=== PATIENT | female | born 1955 | race Caucasian/White ===

== ENCOUNTER 2018-06-22 09:59 | Observation (INO) ==
[2018-06-22 11:27] LABS: Baso % (Auto) 0.6 % (0.0-2.0); Eos # (Auto) 0.1 th/mm3 (0.0-0.4); Eos % (Auto) 1.4 % (0.0-4.0); Hematocrit 40.5 % (35.0-46.0); Hemoglobin 13.9 gm/dL (11.6-15.3); Lymph # (Auto) 1.8 th/mm3 (1.0-4.8); Mean Corpuscular HGB Conc 34.4 % (32.0-36.0); Mean Corpuscular Hemoglobin 33.8 pg (27.0-34.0); Mean Platelet Volume 8.3 fL (7.0-11.0); Mono # (Auto) 0.4 th/mm3 (0.0-0.9); Mono % (Auto) 5.7 % (0.0-8.0); Neut # (Auto) 5.1 th/mm3 (1.8-7.7); Neut % (Auto) 68.3 % (16.0-70.0); Platelet Count 226 th/mm3 (150-450); Red Blood Count 4.13 mil/mm3 (4.00-5.30); Red Cell Distribution Width 13.5 % (11.6-17.2); White Blood Count 7.4 th/mm3 (4.0-11.0)
[2018-06-22 11:45] LABS: Alanine Aminotransferase 19 U/L (10-53); Albumin 3.6 g/dL (3.4-5.0); Anion Gap 5 meq/L (5-15); Aspartate Aminotransferase 16 U/L (15-37); Blood Urea Nitrogen 12 mg/dL (7-18); Calcium 8.5 mg/dL (8.5-10.1); Carbon Dioxide 26.6 meq/L (21.0-32.0); Chloride 105 meq/L (98-107); Glomerular Filtration Rate 61 mL/min (>89); Glucose,Random 76 mg/dL (74-106); Magnesium 1.9 mg/dL (1.5-2.5); Potassium 4.3 meq/L (3.5-5.1); Sodium 137 meq/L (136-145)
[2018-06-22 11:49] LABS: Alkaline Phosphatase 64 U/L (45-117); Total Protein 7.2 g/dL (6.4-8.2)
[2018-06-22 11:50] LABS: Activated Partial Thrombo Time 25.7 sec (23.4-31.7)
[2018-06-22 11:52] LABS: Creatine Kinase 57 U/L (26-192)
--- NOTE | 2018-06-22 13:02 | MR ---
EXAM DATE: 06/22/2018 12:40 PM EST AGE/SEX: 63 years / Female INDICATIONS: Cephalgia. Confusion. CLINICAL DATA: This is the patient's initial encounter. Patient reports that signs and symptoms have been present for 2 days and indicates a pain score of 3/10. MEDICAL/SURGICAL HISTORY: Hypertension. Tonsillectomy. LEEP procedure COMPARISON: [facility], CT HEAD W/O CONTRAST, 06/20/2018. . TECHNIQUE: Multiplanar, multisequence examination of the brain was performed without contrast. FINDINGS: Cerebrum: The ventricles are normal for age. No evidence of midline shift, mass lesion, hemorrhage or acute infarction. No extraaxial fluid collections are seen. The pituitary gland and suprasellar cistern are normal in configuration. White Matter: A few small nonspecific signal abnormalities are seen in the white matter. Posterior Fossa: The cerebellum and brainstem are intact. The 4th ventricle is midline. The cerebel lopontine angle is unremarkable. The cerebellar tonsils are normal in position. Diffusion Imaging: No focal areas of restricted diffusion are seen. No evidence of acute infarction . Extracranial: The visualized portions of the orbits and paranasal sinuses are unremarkable. CONCLUSION: 1. Minimal cerebral white matter disease not unexpected for age. 2. No evidence of acute infarct, hemorrhage, mass or edema. 3. Otherwise normal appearance of the brain for age. Electronically signed by: Bradford Clark MD 06/22/2018 1:01 PM EST
--- NOTE | 2018-06-22 14:24 | ED ---
HPI General Chief complaint: Altered Mental Status Stated complaint: AMS Time Seen by Provider: 06/22/18 10:49 Source: patient Mode of arrival: ambulatory Limitations: no limitations History of Present Illness HPI narrative: Patient is a 63 year old female who comes in complaining of confusion and altered mental status. She says she has been increasingly confused since Monday. Daughter sees her daily and says this is a new change.Daughter says she has been having trouble with finding words and does not know where she is. She says she has had 3 words yesterday she describes it as a "foggy sensation." She was seen Monday and diagnosed with a UTI. She took the Bactrim and is no longer having any symptoms. Daughter is concerned that she continues to be confused. Severity is mild to moderate. Related Data Home Medications Medication Instructions Recorded Confirmed amitriptyline mg PO HS 06/20/18 cyclobenzaprine 10 mg PO BID 06/20/18 06/22/18 gabapentin 100 mg PO BID 06/20/18 06/22/18 lisinopril 20 mg PO DAILY 06/20/18 06/22/18 metoprolol tartrate mg PO BID 06/20/18 Previous Rx's Medication Instructions Recorded sulfamethoxazole-trimethoprim 1 tab PO Q12H #6 tab 06/20/18 [Bactrim DS] Allergies Allergy/AdvReac Type Severity Reaction Status Date / Time diatrizoate meglumine Allergy Severe "HIVES" Verified 06/22/18 10:45 gadobenic acid Allergy Severe "HIVES" Verified 06/22/18 10:45 gadodiamide Allergy Severe "HIVES" Verified 06/22/18 10:45 gadoteridol Allergy Severe "HIVES" Verified 06/22/18 10:45 iodine Allergy Severe Hives Verified 06/22/18 10:45 iodixanol Allergy Severe "HIVES" Verified 06/22/18 10:45 iohexol Allergy Severe "HIVES" Verified 06/22/18 10:45 potassium iodide Allergy Severe Hives Verified 06/22/18 10:45 povidone-iodine Allergy Severe Hives Verified 06/22/18 10:45 sodium iodide Allergy Severe Hives Verified 06/22/18 10:45 sodium iodide Allergy Severe Hives Verified 06/22/18 10:45 ibuprofen [From Motrin] AdvReac Intermediate Heartburn Verified 06/22/18 10:45 tramadol AdvReac Intermediate nausea abd Verified 06/22/18 10:45 pain Review of Systems ROS: all other systems reviewed are negative Constitutional Denies chills and Denies fever(s) ENT Denies dizziness Cardiovascular Denies chest pain and Denies dyspnea Respiratory Denies dyspnea Gastrointestinal Denies nausea and Denies vomiting Musculoskeletal Denies myalgias and Denies arthralgias Integumentary/Breasts Denies sores and Denies wounds Neurologic Denies focal weakness and Denies numbness [facility] Medical History Medical History Hypertension (Acute) Rheumatoid arthritis (Acute) Social History Social History Substance History: No History of Abuse Second Hand Smoke Exposure: No Smoking Status: Current every day smoker Tobacco Type: Cigarettes How Often Do You Have a Drink Containing Alcohol: 2 to 4 times a month Recent Travel in [facility] within the Last 8 Weeks: No Recent Out of Country Travel within the Last 8 Weeks: No Immunization History Tetanus Immunization: <5 Years Exam Narrative Exam Narrative: GENERAL: Awake and alert, in no acute distress. SKIN: Focused skin assessment warm/dry. HEAD: Atraumatic. Normocephalic. EYES: Pupils equal and round. No scleral icterus. No injection or drainage. ENT: Mucous membranes pink and moist. NECK: Trachea midline. No JVD. CARDIOVASCULAR: Regular rate and rhythm. No murmur appreciated. RESPIRATORY: No accessory muscle use. Clear to auscultation. Breath sounds equal bilaterally. GASTROINTESTINAL: Abdomen soft, non-tender, nondistended. MUSCULOSKELETAL: No obvious deformities. No clubbing. No cyanosis. No edema. NEUROLOGICAL: Awake and alert. No obvious cranial nerve deficits. Motor grossly within normal limits. Normal speech. PSYCHIATRIC: Appropriate mood and affect; insight and judgment normal. Course Initial Documented Vital Signs Temperature 98.2 F 06/22/18 10:41 Pulse Rate 62 06/22/18 10:41 Respiratory Rate 14 06/22/18 10:41 Blood Pressure 114/63 06/22/18 10:41 Pulse Oximetry 98 06/22/18 10:41 Last Documented Vital Signs Temperature 98.2 F 06/22/18 10:41 Pulse Rate 62 06/22/18 10:41 Respiratory Rate 14 06/22/18 10:41 Blood Pressure 114/63 06/22/18 10:41 Pulse Oximetry 94 L 06/22/18 11:18 Medical Decision Making MDM Narrative Medical decision making narrative: Patient is a 63-year-old female who comes in due to confusion. Exam shows no neurologic abnormalities. IV established, labs sent. Labs show no acute abnormalities. MRI of the brain performed shows no acute abnormalities. I spoke with Dr. Agarwal who suggests admission with neurology consult. He suggests obtaining a sed rate, MR of the [place] of [place] as well as the carotids. He suggests EEG. Patient admitted for further management. Medical Screen Exam Complete: Yes Emergency Medical Condition: Yes Differential Diagnosis Differential Diagnosis: TIA versus electrolyte abnormality versus infection Medical Records Medical records reviewed: Yes I reviewed the patient's medical records. Lab Data Lab results reviewed: Yes I reviewed the patient's lab results. Result diagrams: 06/22/18 11:10 06/22/18 11:10 Lab Results 06/22/18 06/22/18 06/22/18 Range/Units 11:04 11:10 11:10 WBC 7.4 (4.0-11.0) th/mm3 RBC 4.13 (4.00-5.30) mil/mm3 Hgb 13.9 (11.6-15.3) gm/dL Hct 40.5 (35.0-46.0) % MCV 98.0 (80.0-100.0) fL MCH 33.8 (27.0-34.0) pg MCHC 34.4 (32.0-36.0) % RDW 13.5 (11.6-17.2) % Plt Count 226 (150-450) th/mm3 MPV 8.3 (7.0-11.0) fL Neut % (Auto) 68.3 (16.0-70.0) % Lymph % (Auto) 24.0 (9.0-44.0) % Kinney % (Auto) 5.7 (0.0-8.0) % Eos % (Auto) 1.4 (0.0-4.0) % Baso % (Auto) 0.6 (0.0-2.0) % Neut # (Auto) 5.1 (1.8-7.7) th/mm3 Lymph # (Auto) 1.8 (1.0-4.8) th/mm3 Kinney # (Auto) 0.4 (0.0-0.9) th/mm3 Eos # (Auto) 0.1 (0.0-0.4) th/mm3 Baso # (Auto) 0.0 (0.0-0.2) th/mm3 WBC Differential . Differential Comment Auto diff final PT 10.0 (9.8-11.6) sec INR 1.0 Ratio APTT 25.7 (23.4-31.7) sec Sodium (136-145) meq/L Potassium (3.5-5.1) meq/L Chloride (98-107) meq/L Carbon Dioxide (21.0-32.0) meq/L Anion Gap (5-15) meq/L BUN (7-18) mg/dL Creatinine (0.50-1.00) mg/dL Estimated GFR (>89) mL/min POC Glucose 84 (68-110) mg/dl Random Glucose (74-106) mg/dL Calcium (8.5-10.1) mg/dL Magnesium (1.5-2.5) mg/dL Total Bilirubin (0.2-1.0) mg/dL AST (15-37) U/L ALT (10-53) U/L Alkaline Phosphatase (45-117) U/L Total Creatine Kinase (26-192) U/L Troponin I (0.02-0.05) ng/mL Total Protein (6.4-8.2) g/dL Albumin (3.4-5.0) g/dL 06/22/18 Range/Units 11:10 WBC (4.0-11.0) th/mm3 RBC (4.00-5.30) mil/mm3 Hgb (11.6-15.3) gm/dL Hct (35.0-46.0) % MCV (80.0-100.0) fL MCH (27.0-34.0) pg MCHC (32.0-36.0) % RDW (11.6-17.2) % Plt Count (150-450) th/mm3 MPV (7.0-11.0) fL Neut % (Auto) (16.0-70.0) % Lymph % (Auto) (9.0-44.0) % [place] % (Auto) (0.0-8.0) % Eos % (Auto) (0.0-4.0) % Baso % (Auto) (0.0-2.0) % Neut # (Auto) (1.8-7.7) th/mm3 Lymph # (Auto) (1.0-4.8) th/mm3 [place] # (Auto) (0.0-0.9) th/mm3 Eos # (Auto) (0.0-0.4) th/mm3 Baso # (Auto) (0.0-0.2) th/mm3 WBC Differential Differential Comment PT (9.8-11.6) sec INR Ratio APTT (23.4-31.7) sec Sodium 137 (136-145) meq/L Potassium 4.3 (3.5-5.1) meq/L Chloride 105 (98-107) meq/L Carbon Dioxide 26.6 (21.0-32.0) meq/L Anion Gap 5 (5-15) meq/L BUN 12 (7-18) mg/dL Creatinine 0.92 (0.50-1.00) mg/dL Estimated GFR 61 L (>89) mL/min POC Glucose (68-110) mg/dl Random Glucose 76 (74-106) mg/dL Calcium 8.5 (8.5-10.1) mg/dL Magnesium 1.9 (1.5-2.5) mg/dL Total Bilirubin 0.1 L (0.2-1.0) mg/dL AST 16 (15-37) U/L ALT 19 (10-53) U/L Alkaline Phosphatase 64 (45-117) U/L Total Creatine Kinase 57 (26-192) U/L Troponin I Less than 0.02 L (0.02-0.05) ng/mL Total Protein 7.2 (6.4-8.2) g/dL Albumin 3.6 (3.4-5.0) g/dL Imaging Data Radiologist's impression: Head MRI 06/22/18 11:06 CONCLUSION: 1. Minimal cerebral white matter disease not unexpected for age. 2. No evidence of acute infarct, hemorrhage, mass or edema. 3. Otherwise normal appearance of the brain for age. Discharge Plan Discharge Disposition Patient Disposition: 30 Still Patient Discharge Condition Condition: Stable Discharge Details Diagnosis: Altered mental status Physicians Team ED Provider: Doris Neville Primary Care Provider: Lindsey Alonso Attending Provider: Feliciano Fink Other Providers: Gm Agarwal Discharge Interventions Interventions: Vital Signs Last Done: 06/22/18 14:44 Status ED Status: Admitted Observation Patient
[2018-06-22] MEDS ORDERED: Acetaminophen 325 MG Tablet PO PRN (14:42)
[2018-06-22] MEDS ORDERED: Sod Chloride 0.9% Inj 1,000 ML IV.CONT SCH (14:45)
[2018-06-22 16:29] LABS: Vitamin B12 813 pg/mL (193-986)
[2018-06-22] MEDS ORDERED: LORazepam 1 MG Tablet PO PRN (16:32)
--- NOTE | 2018-06-22 17:10 | MR ---
EXAM DATE: 06/22/2018 5:01 PM EST AGE/SEX: 63 years / Female INDICATIONS: Confusion. CLINICAL DATA: This is the patient's initial encounter. Patient reports that signs and symptoms have been present for 1 day and indicates a pain score of 0/10. MEDICAL/SURGICAL HISTORY: Hypertension. Tonsillectomy. COMPARISON: [facility] [place], MR HEAD W/O CONTRAST, 06/22/2018. . TECHNIQUE: 3D zomy-cl-futkez MRA was performed. Source images, multiplanar STS MIP, and 3D volum e MIP reconstructions were reviewed. FINDINGS: There is excellent visualization of the major intracranial arteries out to the second-order branch ve ssels. There is no evidence for aneurysm, vessel truncation or stenosis, and no evidence for vascula r malformation. CONCLUSION: 1. Negative MRA Cow ([place]) non contrast. 2. No evidence of significant steno-occlusive disease, aneurysm or vasculopathy. Electronically signed by: Bradford Clark MD 06/22/2018 5:09 PM EST
--- NOTE | 2018-06-22 17:50 | P.HPIM ---
History of Present Illness Primary Care Physician: Lindsey Alonso RN History of Present Illness: Pt is 63 yo with htn who presents with an alteration of her baseline cognitive function. History obtained from patient and her daughter who works here at [employer] in psychiatric dept. Pt turned 63 this past Monday and spent the day with several of her girlfriends. Dinner then a bonfire. She spent the night with them and the next day drove herself home. Friends have told Charissa her daughter that she was in her normal state of health during Monday and nothing unusual occurred. On Monday pt was having dinner with daughter and it was noted she was not behaving normally. On Monday/ Monday spent alot of time in bed secluded and daughter says she would only give one word answers and appeared to be having word finding problems. And her mother is normally a "talker". at thanksgiving dinner she sat alone and was "humming alot". complained of some occipital pains into her neck. She had also been seen in ED on Monday and given a script for bactrim to cover a possible uti. that u/a was very unremarkable and pt denied ever having any uti sx's. CT head negative at that time. She was brought to ED today on Monday and admitted for further evaluation. Pt daughter admits that this behavior waxed and waned this week and wasn't continuous. Even in ED today had "20minutes of nml behavior". Daughter says 3months ago this happened for 24hrs and she then returned to normal self. PMH: anxiety htn OA with some chronic neck/shouder pain rotator cuff left shoulder hx etoh abuse "sz during pregnany per daughter 35yrs ago" pad. using plavix. Meds. metoprolol 100 mg ?bid lisinipril 20mg daily amitryptilline ?dose plavix 75mg daily gabapentin 100mg bid flexeril 10mg bid bactrim SH remove heavy etoh use with liquor age [age]. then 4-6 beers/day no hx etoh w/d FH: noncontributory Diagnosis (1) Altered mental status: Medications and Allergies Allergies Allergy/AdvReac Type Severity Reaction Status Date / Time diatrizoate meglumine Allergy Severe "HIVES" Verified 06/22/18 10:45 gadobenic acid Allergy Severe "HIVES" Verified 06/22/18 10:45 gadodiamide Allergy Severe "HIVES" Verified 06/22/18 10:45 gadoteridol Allergy Severe "HIVES" Verified 06/22/18 10:45 iodine Allergy Severe Hives Verified 06/22/18 10:45 iodixanol Allergy Severe "HIVES" Verified 06/22/18 10:45 iohexol Allergy Severe "HIVES" Verified 06/22/18 10:45 potassium iodide Allergy Severe Hives Verified 06/22/18 10:45 povidone-iodine Allergy Severe Hives Verified 06/22/18 10:45 sodium iodide Allergy Severe Hives Verified 06/22/18 10:45 sodium iodide Allergy Severe Hives Verified 06/22/18 10:45 ibuprofen [From Motrin] AdvReac Intermediate Heartburn Verified 06/22/18 10:45 tramadol AdvReac Intermediate nausea abd Verified 06/22/18 10:45 pain Home Medications Medication Instructions Recorded Confirmed Type amitriptyline mg PO HS 06/20/18 History cyclobenzaprine 10 mg PO BID 06/20/18 06/22/18 History gabapentin 100 mg PO BID 06/20/18 06/22/18 History lisinopril 20 mg PO DAILY 06/20/18 06/22/18 History metoprolol tartrate mg PO BID 06/20/18 History Active Medications: Active Medications Acetaminophen (Tylenol) 650 mg PO Q4H PRN PRN Reason: Temp > 100.4 Al Hydroxide/Mg Hydroxide (Milk Of Magnmoo Liq) 30 ml PO Q12H PRN PRN Reason: Mild Constipation Amitriptyline HCl (Elavil) 10 mg PO HS ADRYAN Flumazenil (Romazecon Inj) 0.2 mg IV.PUSH Q1M PRN PRN Reason: OVERSEDATION Sodium Chloride (Ns Inj) 1,000 mls @ 75 mls/hr IV.CONT .[id number] [facility] Last Infusion: 06/22/18 17:16 Dose: 75 mls/hr Lisinopril (Prinivil) 20 mg PO DAILY ADRYAN Lorazepam (Ativan Inj) 1 mg IV.PUSH Q4H PRN PRN Reason: for CIWA 8-10 Lorazepam (Ativan Inj) 2 mg IV.PUSH Q15M PRN PRN Reason: for CIWA > 20 Lorazepam (Ativan Inj) 2 mg IV.PUSH Q1H PRN PRN Reason: for CIWA 15-20 Lorazepam (Ativan Inj) 2 mg IV.PUSH Q2H PRN PRN Reason: for CIWA 11-14 Lorazepam (Ativan) 1 mg PO Q4H PRN PRN Reason: for CIWA 8-10 Lorazepam (Ativan) 2 mg PO Q2H PRN PRN Reason: for CIWA 11-14 Metoprolol Tartrate (Lopressor) 50 mg PO BID ADRYAN Ondansetron HCl (Zofran Inj) 4 mg IV.PUSH Q6H PRN PRN Reason: NAUSEA OR VOMITING Senna/Docusate Sodium (Tracey-Colace) 1 tab PO BID ADRYAN Sodium Chloride (Ns Flush) 2 ml IV.FLUSH PRN PRN PRN Reason: FLUSH AFTER USING IV ACCESS Physical Exam Vital signs: Last Vital Signs Temp 98.2 F 06/22/18 10:41 Pulse 60 06/22/18 14:44 Resp 14 06/22/18 10:41 BP 161/78 H 06/22/18 14:44 Pulse Ox 98 06/22/18 14:44 Narrative: disoriented cooperative. understood she was not remembering things unable to tell me where she was born or currently lived new her daughter's name no nuchal rigidity. moves all 4 extremities w/out difficulty no jvd or carotid bruit heart reg lung cta abd s/nt ext no edema no rash or joint swelling. Results Labs CBC & Chem 7: 06/22/18 11:10 06/22/18 11:10 Caprini VTE Risk Assessment Caprini Risk Assessment Model: Point Value = 1 Point Value = 2 Point Value = 3 Point Value = 5 Age 41-60 Minor surgery BMI > 25 kg/m2 Swollen legs Varicose veins or History of unexplained or recurrent spontaneous Oral contraceptives or hormone replacement Sepsis (< 1 month) Serious lung disease, including pneumonia (< 1 month) Abnormal pulmonary function Acute myocardial infarction Congestive heart failure (< 1 month) History of inflammatory bowel disease Medical patient at bed rest Age 61-74 Arthroscopic surgery Major open surgery (> 45 min) Laparoscopic surgery (> 45 min) Malignancy Confined to bed (> 72 hours) Immobilizing plaster cast Central venous access Age >= 75 History of VTE Family history of VTE Factor V Leiden Prothrombin [id number] Lupus anticoagulant Anticardiolipin antibodies Elevated serum homocysteine Heparin-induced thrombocytopenia Other congenital or acquired thrombophilia Stroke (< 1 month) Elective arthroplasty Hip, pelvis, or leg fracture Acute spinal cord injury (< 1 month) Prophylaxis Regimen: Total Risk Factor Score Risk Level Prophylaxis Regimen 0-1 Low Early ambulation 2 Moderate Order ONE of the following: *Sequential Compression Device (SCD) *Heparin 5000 units SQ BID 3-4 Higher Order ONE of the following medications: *Heparin 5000 units SQ TID *Enoxaparin/Lovenox 40 mg SQ daily (WT < 150 kg, CrCl > 30 mL/min) *Enoxaparin/Lovenox 30 mg SQ daily (WT < 150 kg, CrCl > 10-29 mL/min) *Enoxaparin/Lovenox 30 mg SQ BID (WT < 150 kg, CrCl > 30 mL/min) AND/OR *Sequential Compression Device (SCD) 5 or more Highest Order ONE of the following medications: *Heparin 5000 units SQ TID (Preferred with Epidurals) *Enoxaparin/Lovenox 40 mg SQ daily (WT < 150 kg, CrCl > 30 mL/min) *Enoxaparin/Lovenox 30 mg SQ daily (WT < 150 kg, CrCl > 10-29 mL/min) *Enoxaparin/Lovenox 30 mg SQ BID (WT < 150 kg, CrCl > 30 mL/min) AND *Sequential Compression Device (SCD) Assessment and Plan Assessment (1) Altered mental status: Code(s): R41.82 - Altered mental status, unspecified Status: Acute Plan 1. Mental status change. etiology unclear. so far no radiographic evidence for acute cva will evaluate for metabolic abnormalities will exclude seizure consider psychiatric d/o. medication side effect seems less likely consider relation to her etoh and etoh abuse 2. hx etoh abuse 3. htn neurology consulted mra brain and neck pending eeg ordered and pending esr, tsh, b12, ammonia, bmp, lft ciwa protocol hold gabapentin and flexeril pt is using plavix for pad per daughter telemetry. _ (1) Altered mental status Qualifiers: Altered mental status type: unspecified Coma depth: Coma timing: Qualified Code(s): R41.82 - Altered mental status, unspecified
--- NOTE | 2018-06-22 17:55 | MR ---
EXAM DATE: 06/22/2018 5:38 PM EST AGE/SEX: 63 years / Female INDICATIONS: . Confusion. CLINICAL DATA: This is the patient's initial encounter. Patient reports that signs and symptoms have been present for 1 day and indicates a pain score of 0/10. MEDICAL/SURGICAL HISTORY: Hypertension. Tonsillectomy. COMPARISON: [facility] – [place], MR HEAD W/O CONTRAST, 06/22/2018. . TECHNIQUE: 3D time-of- flight MRA of the extracranial circulation was performed using a neurovascul ar coil. Post processing was performed including rotating sub-volume maximum intensity projections o f each carotid artery, rotating full-volume maximum intensity projections of both carotid arteries, s agittal and coronal sliding thin-slab reformations of each carotid artery, and left oblique sliding t hin-slab reformation through the aortic arch to include the origin of the arch branch vessels. FINDINGS: Aortic Arch : Flow is identified in the innominate and left common carotid artery. There is no flow noted in the left subclavian artery. Right Carotid : The common carotid artery is intact. The carotid bulb has a normal configuration wi thout ulceration or narrowing. The internal carotid artery lumen is smooth without stenosis. The ex ternal carotid artery is intact. Left Carotid : The common carotid artery is intact. The carotid bulb has a normal configuration wit hout ulceration or narrowing. The internal carotid artery lumen is smooth without stenosis. The ext ernal carotid artery is intact. Vertebrals : A large right vertebral artery is identified. There is no flow identified in the left v ertebral artery. CONCLUSION: 1. No definable flow in the left subclavian artery and left vertebral artery characteristic of occlu sions. 2. No evidence of significant steno-occlusive disease involving the carotid arteries 3. Large dominant right vertebral artery. Percent stenosis is calculated using the diameter of the stenotic region over the diameter of the nor mal distal internal carotid artery Electronically signed by: Bradford Clark MD 06/22/2018 5:53 PM EST
[2018-06-22 20:08] LABS: ABG Base Excess 2.8 mmol/L (-2-2); ABG PCO2 37 mmHg (38-42); ABG PO2 74 mmHg (61-120)
--- NOTE | 2018-06-22 20:33 | MB ---
cc: Gm Agarwal MD DATE: 06/22/2018 HISTORY OF PRESENT ILLNESS: A 63-year-old right-handed woman with hypertension, may be a seizure, her daughter is unsure. She says no. She was with her daughter many years ago. No seizures ever since. She has been on Elavil for anxiety and sleeping at night for about a year. She takes Plavix for peripheral vascular disease. She has some anxiety, apparently. She has had a short-term memory problem a few months back just for [address] over her daughter's house, does not remember being there. Then, she seemed to recover fully. She was not intoxicated at the time. Then, for the last 3 days, her memory has been poor. SOCIAL HISTORY: She is a smoker. She has 6 beers a day. Lives with her son. No narcotics or drugs. FAMILY HISTORY: Negative for cancer, seizure, stroke. REVIEW OF SYSTEMS: No history of diabetes, hypercholesterolemia, TN, stent, angioplasty, AFib, Coumadin, renal, hepatic, or pulmonary disease, thyroid disease, lupus, ulcer, cancer, or stroke. She has had a little bit of a headache posteriorly and some neck discomfort. No fall. She did not hit her head. MEDICATIONS AT HOME: 1. Lisinopril. 2. Gabapentin 100 b.i.d. 3. Cyclobenzaprine 10 b.i.d. 4. Bactrim. 5. Metoprolol. 6. Elavil, not sure how many mg at night. CURRENT MEDICATIONS HERE: 1. She is on Elavil and I have stopped that. 2. Ativan p.r.n. PHYSICAL EXAMINATION: VITAL SIGNS: Afebrile, 161/78 to 114/63, 60, O2 saturation 94%. NECK: There were no carotid bruits. HEART: Regular rhythm. I did not detect a murmur. NEUROLOGIC: Pupils are equal. Visual mcfadden are full. Extraocular movements intact without nystagmus. Face is symmetric with normal sensation. Tongue was midline. No drift. Normal strength in upper and lower extremities bilaterally. DTR 1+ and symmetric throughout. Toes are downgoing bilaterally. Pinprick is intact throughout. There is no ankle clonus. She is not ataxic on [id number]. She cannot tell me the year or the month. She does note Thanksgiving just happened. She can get 13-5 calculation normal. She can show me her left thumb. She follows commands well. Neck is supple. LABORATORY DATA: CBC is normal. Sedimentation rate is 4. Basic metabolic profile is normal. LFTs are normal. Ammonia level normal. Troponin, CPK, B12, folate, TSH, coags all normal. MRI of the brain normal, minimal white matter changes bilaterally. She is right vertebral dominant. The left is occluded. Carotids looked fine. [place] was read as normal. IMPRESSION: Certainly some type of confusion. Whether she could be having small seizures could be considered. A mild case of herpes encephalitis could be considered. We are going to put her on some acyclovir. Unfortunately, she cannot have a LP as just coming off the Plavix. I would stop the Elavil. We will check an EEG, give her IV hydration. Check an ABG. We can check a paraneoplastic screen. We will check a chest x-ray on her to make sure there is no mass. Subclinical seizures could be considered. Check thiamine level. MD LARRY Bundy/izabela , 07:48 PM , 07:55 PM
[2018-06-22] MEDS ORDERED: Amitriptyline 10 MG Tablet PO SCH (21:00)
--- NOTE | 2018-06-22 21:09 | XR ---
EXAM DATE: 06/22/2018 9:02 PM EST AGE/SEX: 63 years / Female INDICATIONS: . Shortness of breath CLINICAL DATA: This is the patient's initial encounter. Patient reports that signs and symptoms have been present for 1 day and indicates a pain score of 0/10. MEDICAL/SURGICAL HISTORY: None. None. COMPARISON: HPO, CHEST 1V SINGLE AP, 06/20/2018. . FINDINGS: Mild diffuse interstitial opacities without new focal pleural or parenchymal opacities.. The cardiom ediastinal contours are unremarkable. Osseous structures are intact. CONCLUSION: 1. No acute abnormality or significant interval change. Electronically signed by: Cody Cardoso MD 06/22/2018 9:07 PM EST
[2018-06-22] MEDS: Sod Chloride 0.9% Inj 1,000 ML IV.CONT SCH (21:10)
[2018-06-22] MEDS: ACYCLOVIR IV.SIG SCH ×2 (21:11→21:30)
[2018-06-22] MEDS: SODIUM CHLOR 0.9% IV.SIG SCH ×2 (21:11→21:30)
[2018-06-22] MEDS: Metoprolol Tartrate 50 MG Tablet PO SCH (21:12)
[2018-06-22] MEDS: Senna/Docusate Sodium 8.6/50 MG Tablet PO SCH (21:12)
[2018-06-22] MEDS ORDERED: Haloperidol Inj 5 MG/ML Ampul IV.PUSH PRN (22:00)
[2018-06-23] MEDS: Senna/Docusate Sodium 8.6/50 MG Tablet PO SCH ×2 (01:20→08:13)
[2018-06-23] MEDS: ACYCLOVIR IV.SIG SCH (05:06)
[2018-06-23] MEDS: SODIUM CHLOR 0.9% IV.SIG SCH (05:06)
[2018-06-23 06:31] LABS: Baso % (Auto) 0.8 % (0.0-2.0); Eos # (Auto) 0.2 th/mm3 (0.0-0.4); Eos % (Auto) 3.1 % (0.0-4.0); Hematocrit 39.4 % (35.0-46.0); Hemoglobin 13.6 gm/dL (11.6-15.3); Lymph # (Auto) 2.4 th/mm3 (1.0-4.8); Lymph % (Auto) 47.4 % (9.0-44.0); Mean Corpuscular HGB Conc 34.4 % (32.0-36.0); Mean Corpuscular Hemoglobin 33.1 pg (27.0-34.0); Mean Corpuscular Volume 96.4 fL (80.0-100.0); Mean Platelet Volume 8.5 fL (7.0-11.0); Mono # (Auto) 0.3 th/mm3 (0.0-0.9); Mono % (Auto) 6.1 % (0.0-8.0); Neut # (Auto) 2.2 th/mm3 (1.8-7.7); Neut % (Auto) 42.6 % (16.0-70.0); Platelet Count 254 th/mm3 (150-450); Red Blood Count 4.09 mil/mm3 (4.00-5.30); Red Cell Distribution Width 13.8 % (11.6-17.2); White Blood Count 5.1 th/mm3 (4.0-11.0)
[2018-06-23 06:39] LABS: Alanine Aminotransferase 19 U/L (10-53); Albumin 3.7 g/dL (3.4-5.0); Anion Gap 6 meq/L (5-15); Aspartate Aminotransferase 15 U/L (15-37); Blood Urea Nitrogen 12 mg/dL (7-18); Carbon Dioxide 27.9 meq/L (21.0-32.0); Chloride 105 meq/L (98-107); Cholesterol 195 mg/dL (120-200); Glomerular Filtration Rate 62 mL/min (>89); Glucose,Random 109 mg/dL (74-106); Magnesium 2.2 mg/dL (1.5-2.5); Potassium 4.1 meq/L (3.5-5.1); Sodium 139 meq/L (136-145); Triglycerides 85 mg/dL (42-150)
[2018-06-23 06:43] LABS: Alkaline Phosphatase 66 U/L (45-117); Chol/HDL Ratio 2.62 Ratio; HDL Cholesterol 74.2 mg/dL (40.0-60.0); LDL Cholesterol,Calculated 104 mg/dL (0-99); Phosphorus 3.9 mg/dL (2.5-4.9); Total Protein 7.2 g/dL (6.4-8.2)
[2018-06-23] MEDS: Metoprolol Tartrate 50 MG Tablet PO SCH (08:13)
[2018-06-23] MEDS ORDERED: Lisinopril 20 MG Tablet PO SCH (09:00)
--- NOTE | 2018-06-23 09:00 | P.PNNEU ---
Subjective Subjective Comments: better this am Active Medications: Active Medications Acetaminophen (Tylenol) 650 mg PO Q4H PRN PRN Reason: Temp > 100.4 Al Hydroxide/Mg Hydroxide (Milk Of Rachele Asencio) 30 ml PO Q12H PRN PRN Reason: Mild Constipation Flumazenil (Romazecon Inj) 0.2 mg IV.PUSH Q1M PRN PRN Reason: OVERSEDATION Haloperidol Lactate (Haldol Inj) 2 mg IV.PUSH Q4HR PRN PRN Reason: agitation/psychosis Ceftriaxone Sodium 1,000 mg/ (Sodium Chloride) 100 mls @ 200 mls/hr IV.SIG Q12H [facility] Last Admin: 06/23/18 08:13 Dose: 200 mls/hr Sodium Chloride (Ns Inj) 1,000 mls @ 70 mls/hr IV.CONT .[id number] [facility] Last Admin: 06/22/18 21:10 Dose: 70 mls/hr Acyclovir Sodium 610 mg/ (Sodium Chloride) 112.2 mls @ 112.2 mls/hr IV.SIG Q8H [facility] Last Admin: 06/23/18 05:06 Dose: Not Given Lisinopril (Prinivil) 20 mg PO DAILY [facility] Last Admin: 06/23/18 08:13 Dose: 20 mg Lorazepam (Ativan Inj) 1 mg IV.PUSH Q4H PRN PRN Reason: for CIWA 8-10 Lorazepam (Ativan Inj) 2 mg IV.PUSH Q15M PRN PRN Reason: for CIWA > 20 Lorazepam (Ativan Inj) 2 mg IV.PUSH Q1H PRN PRN Reason: for CIWA 15-20 Lorazepam (Ativan Inj) 2 mg IV.PUSH Q2H PRN PRN Reason: for CIWA 11-14 Last Admin: 06/23/18 02:08 Dose: 2 mg Lorazepam (Ativan) 1 mg PO Q4H PRN PRN Reason: for CIWA 8-10 Lorazepam (Ativan) 2 mg PO Q2H PRN PRN Reason: for CIWA 11-14 Last Admin: 06/22/18 21:43 Dose: 2 mg Metoprolol Tartrate (Lopressor) 50 mg PO BID [facility] Last Admin: 06/23/18 08:13 Dose: 50 mg Ondansetron HCl (Zofran Inj) 4 mg IV.PUSH Q6H PRN PRN Reason: NAUSEA OR VOMITING Senna/Docusate Sodium (Tracey-Colace) 1 tab PO BID [facility] Last Admin: 06/23/18 08:13 Dose: 1 tab Sodium Chloride (Ns Flush) 2 ml IV.FLUSH PRN PRN PRN Reason: FLUSH AFTER USING IV ACCESS Allergies/Adverse Reactions: Allergies Allergy/AdvReac Type Severity Reaction Status Date / Time diatrizoate meglumine Allergy Severe "HIVES" Verified 06/22/18 10:45 gadobenic acid Allergy Severe "HIVES" Verified 06/22/18 10:45 gadodiamide Allergy Severe "HIVES" Verified 06/22/18 10:45 gadoteridol Allergy Severe "HIVES" Verified 06/22/18 10:45 iodine Allergy Severe Hives Verified 06/22/18 10:45 iodixanol Allergy Severe "HIVES" Verified 06/22/18 10:45 iohexol Allergy Severe "HIVES" Verified 06/22/18 10:45 potassium iodide Allergy Severe Hives Verified 06/22/18 10:45 povidone-iodine Allergy Severe Hives Verified 06/22/18 10:45 sodium iodide Allergy Severe Hives Verified 06/22/18 10:45 sodium iodide Allergy Severe Hives Verified 06/22/18 10:45 ibuprofen [From Motrin] AdvReac Intermediate Heartburn Verified 06/22/18 10:45 tramadol AdvReac Intermediate nausea abd Verified 06/22/18 10:45 pain Physical Exam Vital signs: Vital Signs 06/22/18 10:41 06/22/18 11:14 06/22/18 11:18 Temperature 98.2 F Pulse Rate 62 Respiratory Rate 14 Blood Pressure 114/63 Pulse Oximetry 98 94 L 94 L 06/22/18 14:44 06/22/18 20:00 06/23/18 00:00 Temperature 97.7 F 98.3 F Pulse Rate 60 73 68 Respiratory Rate 18 18 Blood Pressure 161/78 H 113/56 L 138/59 L Pulse Oximetry 98 95 99 06/23/18 04:00 06/23/18 08:00 Temperature 97.8 F 98.4 F Pulse Rate 73 80 Respiratory Rate 18 16 Blood Pressure 118/64 120/68 Pulse Oximetry 96 95 Intake & Output 06/22/18 06/23/18 06/23/18 18:59 06:59 18:59 Intake Total 500 / 500 Balance 500 / 500 Weight 61.235 kg 61.2 kg Intake: IV 500 / 500 NS Inj 1,000 ML @ 75 mls/hr IV. 500 / 500 CONT .[id number] [facility] Rx#:[id number] Other: # Voids 2 Weight On Admission 58.967 kg Narrative: awake alert knows all addresses and month and yr now stm 2/3 vff 5/5 Objective Laboratory Results - last 24 hr 06/22/18 06/22/18 06/22/18 11:04 11:10 11:10 WBC 7.4 RBC 4.13 Hgb 13.9 Hct 40.5 MCV 98.0 MCH 33.8 MCHC 34.4 RDW 13.5 Plt Count 226 MPV 8.3 Neut % (Auto) 68.3 Lymph % (Auto) 24.0 [place] % (Auto) 5.7 Eos % (Auto) 1.4 Baso % (Auto) 0.6 Neut # (Auto) 5.1 Lymph # (Auto) 1.8 [place] # (Auto) 0.4 Eos # (Auto) 0.1 Baso # (Auto) 0.0 WBC Differential . Differential Comment Auto diff final ESR PT 10.0 INR 1.0 APTT 25.7 Puncture Site Patient Temperature O2 Saturation ABG pH ABG pCO2 ABG pO2 ABG HCO3 ABG O2 Content ABG Base Excess ABG Methemoglobin Wesley Test Hemoglobin Carboxyhemoglobin Critical Value Sodium Potassium Chloride Carbon Dioxide Anion Gap BUN Creatinine Estimated GFR POC Glucose 84 Random Glucose Calcium Phosphorus Magnesium Total Bilirubin AST ALT Alkaline Phosphatase Ammonia Total Creatine Kinase Troponin I C-Reactive Protein Total Protein Total Protein (PEP) Albumin Triglycerides Cholesterol LDL Cholesterol, Calc HDL Cholesterol Cholesterol/HDL Ratio Vitamin B12 Folate TSH Rheumatoid Factor Scrn Rheumatoid Factor Titer 06/22/18 06/22/18 06/22/18 11:10 11:10 11:10 WBC RBC Hgb Hct MCV MCH MCHC RDW Plt Count MPV Neut % (Auto) Lymph % (Auto) [place] % (Auto) Eos % (Auto) Baso % (Auto) Neut # (Auto) Lymph # (Auto) [place] # (Auto) Eos # (Auto) Baso # (Auto) WBC Differential Differential Comment ESR 4 PT INR APTT Puncture Site Patient Temperature O2 Saturation ABG pH ABG pCO2 ABG pO2 ABG HCO3 ABG O2 Content ABG Base Excess ABG Methemoglobin Wesley Test Hemoglobin Carboxyhemoglobin Critical Value Sodium 137 Potassium 4.3 Chloride 105 Carbon Dioxide 26.6 Anion Gap 5 BUN 12 Creatinine 0.92 Estimated GFR 61 L POC Glucose Random Glucose 76 Calcium 8.5 Phosphorus Magnesium 1.9 Total Bilirubin 0.1 L AST 16 ALT 19 Alkaline Phosphatase 64 Ammonia Total Creatine Kinase 57 Troponin I Less than 0.02 L C-Reactive Protein Total Protein 7.2 Total Protein (PEP) Albumin 3.6 Triglycerides Cholesterol LDL Cholesterol, Calc HDL Cholesterol Cholesterol/HDL Ratio Vitamin B12 813 Folate Greater than 20.0 H TSH Rheumatoid Factor Scrn Rheumatoid Factor Titer 06/22/18 06/22/18 06/22/18 11:10 17:18 19:59 WBC RBC Hgb Hct MCV MCH MCHC RDW Plt Count MPV Neut % (Auto) Lymph % (Auto) [place] % (Auto) Eos % (Auto) Baso % (Auto) Neut # (Auto) Lymph # (Auto) [place] # (Auto) Eos # (Auto) Baso # (Auto) WBC Differential Differential Comment ESR PT INR APTT Puncture Site Right radial Patient Temperature 98.6 O2 Saturation 92 ABG pH 7.46 H ABG pCO2 37 L ABG pO2 74 ABG HCO3 26 ABG O2 Content 17.4 ABG Base Excess 2.8 H ABG Methemoglobin 1.2 Wesley Test Present Hemoglobin 13.4 Carboxyhemoglobin 2.9 Critical Value No Sodium Potassium Chloride Carbon Dioxide Anion Gap BUN Creatinine Estimated GFR POC Glucose Random Glucose Calcium Phosphorus Magnesium Total Bilirubin AST ALT Alkaline Phosphatase Ammonia Less than 10 L Total Creatine Kinase Troponin I C-Reactive Protein Total Protein Total Protein (PEP) Albumin Triglycerides Cholesterol LDL Cholesterol, Calc HDL Cholesterol Cholesterol/HDL Ratio Vitamin B12 Folate TSH 1.210 Rheumatoid Factor Scrn Rheumatoid Factor Titer 06/23/18 06/23/18 06/23/18 05:46 05:46 05:46 WBC 5.1 RBC 4.09 Hgb 13.6 Hct 39.4 MCV 96.4 MCH 33.1 MCHC 34.4 RDW 13.8 Plt Count 254 MPV 8.5 Neut % (Auto) 42.6 Lymph % (Auto) 47.4 H [place] % (Auto) 6.1 Eos % (Auto) 3.1 Baso % (Auto) 0.8 Neut # (Auto) 2.2 Lymph # (Auto) 2.4 [place] # (Auto) 0.3 Eos # (Auto) 0.2 Baso # (Auto) 0.0 WBC Differential . Differential Comment Auto diff final ESR PT INR APTT Puncture Site Patient Temperature O2 Saturation ABG pH ABG pCO2 ABG pO2 ABG HCO3 ABG O2 Content ABG Base Excess ABG Methemoglobin Wesley Test Hemoglobin Carboxyhemoglobin Critical Value Sodium 139 Potassium 4.1 Chloride 105 Carbon Dioxide 27.9 Anion Gap 6 BUN 12 Creatinine 0.91 Estimated GFR 62 L POC Glucose Random Glucose 109 H Calcium 9.0 Phosphorus 3.9 Magnesium 2.2 Total Bilirubin 0.3 AST 15 ALT 19 Alkaline Phosphatase 66 Ammonia Total Creatine Kinase Troponin I C-Reactive Protein Less than 0.29 Total Protein 7.2 Total Protein (PEP) 7.0 Albumin 3.7 Triglycerides 85 Cholesterol 195 LDL Cholesterol, Calc 104 H HDL Cholesterol 74.2 H Cholesterol/HDL Ratio 2.62 Vitamin B12 Folate TSH Rheumatoid Factor Scrn Negative Rheumatoid Factor Titer Not Reportable 06/23/18 08:03 WBC RBC Hgb Hct MCV MCH MCHC RDW Plt Count MPV Neut % (Auto) Lymph % (Auto) [place] % (Auto) Eos % (Auto) Baso % (Auto) Neut # (Auto) Lymph # (Auto) [place] # (Auto) Eos # (Auto) Baso # (Auto) WBC Differential Differential Comment ESR PT INR APTT Puncture Site Patient Temperature O2 Saturation ABG pH ABG pCO2 ABG pO2 ABG HCO3 ABG O2 Content ABG Base Excess ABG Methemoglobin Wesley Test Hemoglobin Carboxyhemoglobin Critical Value Sodium Potassium Chloride Carbon Dioxide Anion Gap BUN Creatinine Estimated GFR POC Glucose 109 Random Glucose Calcium Phosphorus Magnesium Total Bilirubin AST ALT Alkaline Phosphatase Ammonia Total Creatine Kinase Troponin I C-Reactive Protein Total Protein Total Protein (PEP) Albumin Triglycerides Cholesterol LDL Cholesterol, Calc HDL Cholesterol Cholesterol/HDL Ratio Vitamin B12 Folate TSH Rheumatoid Factor Scrn Rheumatoid Factor Titer Review/Management - Review/Management Plan: imp back to nl after eeg done she could dc and fu office dc acyclovir cxr neg hu pend
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
[2018-06-23 12:28] LABS: Bilirubin,Urine Negative (Negative); Clarity,Urine Clear (Clear); Color,Urine Yellow (Yellw/Straw); Glucose,Urine (UA) Negative (Negative); Leukocyte Esterase,Urine Negative (Negative); Nitrite,Urine Negative (Negative); Specific Gravity,Urine 1.014 (1.002-1.035); Squamous Epithelial Cell,Urine 2 /hpf (0-5)
[2018-06-23 12:33] LABS: Amphetamine Screen,Urine Neg (Neg); Barbiturate Screen,Urine Neg (Neg); Cannabinoid Screen,Urine Pos (Neg); Cocaine Screen,Urine Neg (Neg)
[2018-06-23 12:40] LABS: Opiate Screen,Urine Neg (Neg)
[2018-06-23] MEDS: Sod Chloride 0.9% Inj 1,000 ML IV.CONT SCH (14:31)
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
--- NOTE | 2018-06-24 10:50 | MG ---
cc: Gm Agarwal MD EEG NUMBER: [id number] CLINICAL HISTORY: A 63-year-old woman trouble getting her words out. MEDICATIONS: 1. Ceftriaxone. 2. Prinivil. 3. Ativan. 4. Lopressor. DESCRIPTION: An 8 Hz, 60 microvolt symmetric normal-appearing posterior rhythm is seen. Some beta rhythms are seen, slightly consistent with benzodiazepines. No hemisphere asymmetry is noted. No epileptiform or seizure activity seen. Hyperventilation and photic stimulation are performed without significant change in the background. The patient falls asleep with some sleep spindles briefly. IMPRESSION: Normal awake and sleep electroencephalogram. No evidence for a focal or diffuse abnormality. MD BRITT BundyM/lc , 10:03 AM , 10:07 AM
[2018-06-25 11:18] LABS: Anti-Nuclear Antibody Screen Pos (Neg)
[2018-06-28 15:52] LABS: Neuronal Nuclear Ab (HU) Titer ND titer (<1:40); Neuronal Nuclear Ab (RI) Titer ND titer (<1:40); Neuronal Nuclear(HU)Ab Screen FLUORESCENCE NOTED (NEGATIVE); Neuronal Nuclear(RI)Ab Screen FLUORESCENCE NOTED (NEGATIVE); Purkinje Ab Titer ND titer (<1:40); RI Ab Western Blot NEGATIVE (NEGATIVE); Yo Ab Western Blot Confimation NEGATIVE (NEGATIVE)
[2018-06-28 16:59] LABS: Methylmalonic Acid 0.18 nmol/mL (<=0.40)
== END 2018-06-23 15:06 | disposition home or self-care (01) ==
LOC: NEPE 09:59 → NEDA 09:59 → N05 15:47
PROVIDERS: ADMIT Hospitalist; ATTEND Hospitalist
DX: N39.0 Urinary tract infection, site not specified; R47.01 Aphasia; M06.9 Rheumatoid arthritis, unspecified; F43.10 Post-traumatic stress disorder, unspecified; I10 Essential (primary) hypertension; F09 Unspecified mental disorder due to known physiological condition; F33.3 Major depressive disorder, recurrent, severe with psychotic symptoms; Z91.041 Radiographic dye allergy status; R06.02 Shortness of breath; Z79.02 Long term (current) use of antithrombotics/antiplatelets; F17.210 Nicotine dependence, cigarettes, uncomplicated; F10.10 Alcohol abuse, uncomplicated; Z82.3 Family history of stroke; R41.82 Altered mental status, unspecified; I73.9 Peripheral vascular disease, unspecified